=== PATIENT | female | born 1955 | race Caucasian/White ===

== ENCOUNTER 2023-04-02 21:09 | Inpatient (IN) | payer MEDICARE, BC ==
[~2023-04-02] VITALS: Ht 162.6 cm; Wt 50.8 kg
--- NOTE | 2023-04-02 21:15 | NUR ---
PT A/OX4 BREATHING IS EVEN AND UNLABORED 7% ON ROOM AIR. C/O AB PAIN REJI UMBILICAL 08/17 ACUTE ONSET. PT PLACED IN BED LOW FOWLERS AND CONNECTED TO BEDSIDE MONITOR TACHYCARDIA NOTED 122 BP WNL. BED LOCKED IN LOWEST POSTION.
--- NOTE | 2023-04-02 21:15 | NUR ---
20g rac started blood drawn and sent to lab
--- NOTE | 2023-04-02 21:15 | NUR ---
AT BEDSIDE FOR EVAL.
--- NOTE | 2023-04-02 21:45 | NUR ---
URINE COLLECTED AND SENT TO LAB
[2023-04-02] MEDS ORDERED: IV NS 0.9% 500 ML BAG IV ONE (22:00)
[2023-04-02] MEDS ORDERED: MORPHINE SULFATE INJ 2 MG/ML DISP.SYRIN IV ONE (22:00)
[2023-04-02] MEDS ORDERED: ONDANSETRON HCL/PF 4 MG/2 ML VIAL IV ONE (22:00)
[2023-04-02] MEDS ORDERED: ONDANSETRON HCL/PF 4 MG/2 ML VIAL ONE (22:09)
[2023-04-02] MEDS ORDERED: MORPHINE SULFATE INJ 4 MG/ML DISP.SYRIN ONE (22:10)
[2023-04-02 22:16] LABS: EOSINOPHILS % (AUTO) 0.5 % (0.0-6.0); LYMPHOCYTES # (AUTO) 1.4 K/uL (0.8-4.8); MEAN CORPUSCULAR HGB CONC 33 g/dl (31.0-36.0); MEAN CORPUSCULAR VOLUME 99 fL (82-100); PLATELET COUNT (AUTO) 415 K/uL (150-450)
[2023-04-02 22:20] LABS: HEMATOCRIT 40 % (33-45); HEMOGLOBIN 13.1 g/dL (11.5-14.8); LYMPHOCYTES % (AUTO) 31.3 % (20.0-44.0); MONOCYTES % (AUTO) 0.6 % (2.0-12.0); NEUTROPHILS % (AUTO) 66.6 % (43.0-81.0); RED BLOOD CELL COUNT(AUTO) 4.09 MIL/uL (4.0-5.2); WHITE BLOOD COUNT (AUTO) 4.4 K/uL (4.3-11.0)
[2023-04-02 22:24] LABS: CALCIUM, SERUM 9.9 mg/dL (8.5-10.1); CARBON DIOXIDE 22 mmol/L (21-32); CHLORIDE 103 mmol/L (98-107); CREATININE 2.2 mg/dL (0.6-1.3); GLUCOSE 156 mg/dL (74-106); POTASSIUM 3.6 mmol/L (3.5-5.1); SODIUM SERUM 143 mmol/L (136-145); UREA NITROGEN, BLOOD 36 mg/dL (7-18)
[2023-04-02 22:29] LABS: ALANINE AMINOTRANSFERASE 52 U/L (12-78); ALBUMIN 4.4 g/dL (3.4-5.0); ALKALINE PHOSPHATASE 121 U/L (46-116); ASPARTATE AMINOTRANSFERASE 38 U/L (15-37); BILIRUBIN,DIRECT 0.1 mg/dL (0.0-0.2); BILIRUBIN,TOTAL 0.4 mg/dL (0.2-1.0); LIPASE 99 U/L (73-393); TOTAL PROTEIN, SERUM 7.4 g/dL (6.4-8.2)
[2023-04-02] MEDS ORDERED: MINERAL OIL 133 ML (PYXIS) 1 EA ENEMA RC ONE ×2 (22:59→23:00)
--- NOTE | 2023-04-02 23:15 | NUR ---
REPORT RECEIVED FROM ERICA CHATMAN FOR ELLIS
[2023-04-03] VITALS (25 sets, daily range): BP systolic 0–169; BP diastolic 0–90
--- NOTE | 2023-04-03 00:10 | NUR ---
MUSIC THERAPY TEACHER AT BEDSIDE
--- NOTE | 2023-04-03 00:15 | NUR ---
COVID SWAB COLLECTED, SENT TO LAB
[2023-04-03] MEDS ORDERED: KETOROLAC TROMETHAMINE INJ 30 MG/ML VIAL ONE (00:48)
[2023-04-03] MEDS ORDERED: KETOROLAC TROMETHAMINE INJ 30 MG/ML VIAL IV ONE (01:00)
--- NOTE | 2023-04-03 02:04 | NUR ---
REPORT GIVEN TO NURY CHATMAN
--- NOTE | 2023-04-03 02:06 | NUR ---
PER NURY RN, PT GOING TO 304-1
[2023-04-03] MEDS ORDERED: IV NS 0.9% 1,000 ML IV ONE ×2 (02:19→09:00)
[2023-04-03] MEDS ORDERED: ONDANSETRON HCL/PF 4 MG/2 ML VIAL IVP PRN (02:30)
[2023-04-03] MEDS ORDERED: Z GUARD REMEDY 4 OZ OINT TP PRN (02:30)
[2023-04-03] MEDS ORDERED: ACETAMINOPHEN 325 MG TABLET PO PRN (02:30)
[2023-04-03] MEDS ORDERED: ZOLPIDEM TARTRATE 5 MG TABLET PO PRN (02:30)
[2023-04-03] MEDS ORDERED: MAG HYDROX/AL HYDROX/SIMETH 30 ML UDC PO PRN (02:30)
[2023-04-03] MEDS ORDERED: MAGNESIUM HYDROXIDE 30 ML UDC PO PRN (02:30)
[2023-04-03] MEDS ORDERED: MINERAL OIL 133 ML (PYXIS) 1 EA ENEMA RC PRN (02:30)
--- NOTE | 2023-04-03 02:55 | NUR ---
PT TRANSPORTED TO [facility] W/ EMT
--- NOTE | 2023-04-03 03:00 | NUR ---
MS ADMISSION NOTE PT HAS IV ACCESS TO RIGHT AC # 20G, IV INTACT, AND PATENT. SKIN ASSESSMENT COMPLETED. PT'S SKIN IS INTACT. BELONGING CHECKED, AND BELONGING LIST SIGNED, AND PLACED IN CHART. SAFETY MEASURES IN PLACE: BED IN LOW POSITION, SR UP X2, CALL LIGHT WITHIN REACH. WILL CONTINUE TO MONITOR PT.
--- NOTE | 2023-04-03 03:00 | NUR ---
MS TUBE TESTER NOTE RECEIVED REPORT FROM ER NURSE TWAN. PT BEING ADMITTED IN ROOM 304-1 FOR ILEUS, AND FECAL IMPACTION OF COLON. PT IS A/O X4, ABLE TO MAKE NEEDS KNOWN. ABLE TO AMBULATE. ON ROOM AIR, TOLERATING ROOM AIR WELL. NO RESPIRATORY DISTRESS NOTED. PT C/O ABDOMINAL DISCOMFORT. IV ACCESS TO RIGHT AC #2V0G
--- NOTE | 2023-04-03 04:00 | NUR ---
MS RN NOTE NG TUBE PLACED TO RIGHT NOSTRIL. PT TOLERATED PROCEDURE WELL.
[2023-04-03 06:56] LABS: BASOPHILS % (AUTO) 0.7 % (0.0-2.0); HEMATOCRIT 42 % (33-45); HEMOGLOBIN 13.3 g/dL (11.5-14.8); LYMPHOCYTES # (AUTO) 0.4 K/uL (0.8-4.8); LYMPHOCYTES % (AUTO) 31.2 % (20.0-44.0); MEAN CORPUSCULAR HGB CONC 32 g/dl (31.0-36.0); MEAN CORPUSCULAR VOLUME 100 fL (82-100); MONOCYTES # (AUTO) 0.1 K/uL (0.1-1.30); MONOCYTES % (AUTO) 4.5 % (2.0-12.0); NEUTROPHILS # (AUTO) 0.7 K/uL (1.8-8.9); NEUTROPHILS % (AUTO) 61.6 % (43.0-81.0); PLATELET COUNT (AUTO) 399 K/uL (150-450); RED BLOOD CELL COUNT(AUTO) 4.23 MIL/uL (4.0-5.2)
--- NOTE | 2023-04-03 07:00 | NUR ---
MS RN CLOSING NOTE PT LEFT IN BED. PT C/O PAIN TO ABDOMEN. MD CALLED, AND NOTIFIED. NEW ORDER RECEIVED FOR MORPHINE 2 MG IV X1. ORDER ENTERED. NG TUBE OUTPUT: 200 ML. IV ACCESS TO RIGHT AC INFUSING NS AT 75 ML/HR. WILL ENDORSE TO MORNING SHIFT NURSE FOR ELLIS.
[2023-04-03 07:18] LABS: CALCIUM, SERUM 9.3 mg/dL (8.5-10.1); CREATININE 3.1 mg/dL (0.6-1.3); PHOSPHORUS 5.1 mg/dL (2.5-4.9); POTASSIUM 4.7 mmol/L (3.5-5.1)
[2023-04-03 07:30] LABS: WHITE BLOOD COUNT (AUTO) 1.2 K/uL (4.3-11.0)
[2023-04-03] MEDS ORDERED: MORPHINE SULFATE INJ 2 MG/ML DISP.SYRIN IV ONE (07:30)
[2023-04-03 07:36] LABS: MAGNESIUM 4.2 mg/dL (1.8-2.4)
--- NOTE | 2023-04-03 07:50 | NUR ---
MS RN OPENING NOTE RECEIVED PATIENT SLEEPING IN BED, EASILY AWAKEN BY VERBAL STIMULI, PT IS A/O X4 ENDORSED BY NOD, ON ROOM AIR, NOT IN CARDIAC OR RESPIRATORY DISTRESS NOTED. STILL ON NPO, IV ACCESS AT RAC #20 WITH NS AT 75 ML/HR. SAFETY MEASURES IMPLEMENTED. WILL MONITOR.
--- NOTE | 2023-04-03 08:00 | NUR ---
RN NOTES RECEIVED CRITICAL LEVEL OF POTASSIUM 6.8, RELAYED TO OLIVIA GOMEZ COMPUTER OPERATIONS MANAGER. AWAITS MD/COMPUTER OPERATIONS MANAGER ORDER.
--- NOTE | 2023-04-03 08:00 | NUR ---
RN NOTES PT FOLLOWS SIMPLE COMMAND, TACHYPNEIC , DR GRISSOM AT THE BEDSIDE, NEW ORDER RECEIVED . CONTINUE TO MONITOR .
--- NOTE | 2023-04-03 08:32 | NUR ---
RN NOTES PT RECEIVED FROM 3W S/P CODE BLUE , INTUBATED, PT DOES NOT RESPONDS TO PAINFUL STIMULI , DOES NOT FOLLOW COMMAND, LOW BP NOTED , ON TELE SR , GRANT INSERTED, 5CC URINE OUTPUT NOTED. LEVO DRIP STARTED FOR BP SUPPORT. IVF NS BOLUS INFUSING, CONTINUE TO MONITOR .
[2023-04-03] MEDS: NOREPINEPHRINE 8 MG in IV D5W 242 ML IV PRN ×2 (08:56→12:27)
[2023-04-03] MEDS ORDERED: IV D5/ 0.9% NACL 1,000 ML IV PRN (09:00)
[2023-04-03] MEDS ORDERED: NOREPINEPHRINE 8 MG in IV NS 0.9% 242 ML IV PRN (09:00)
[2023-04-03] MEDS ORDERED: PANTOPRAZOLE 40 MG VIAL IV SCH (09:00)
[2023-04-03] MEDS ORDERED: IMIPENEM/CILASTATIN 500 MG in IV NS 0.9% 100 ML IV SCH (09:00)
--- NOTE | 2023-04-03 09:00 | NUR ---
RN NOTES PATIENT WAS FOUND UNRESPONSIVE, PULSELESS WITH COLD CLAMMY SKIN BY LABORATORY TECH AT AROUND 0815. CHEST COMPRESSION GIVEN RIGHT AWAY, CODE BLUE INITIATED, CODE YESENIA TEAM ARRIVED. PATIENT STABLIZED Addendum: 04/03/23 at 1154 by SANTOS LUGO RN PATIENT STABILIZED AND FOUND TO HAVE ROSC(RETURN OF CIRCULATION).PATIENT TRANSFERRED TO ICU UTILIZING ACLS PROTOCOL ACCOMPANIED BY ICU NURSE, RT AND PHARMACIST. ENDORSED
[2023-04-03] MEDS ORDERED: PROPOFOL 100 ML IV PRN (09:30)
[2023-04-03] MEDS: HYDROCORTISONE SOD SUCCINATE 100 MG/2 ML VIAL IV SCH ×2 (09:39→12:27)
[2023-04-03] MEDS ORDERED: SULF1TAB48 PO (09:40)
[2023-04-03] MEDS ORDERED: AZIT250T13 PO (09:40)
[2023-04-03] MEDS ORDERED: TACR0.5C4 PO (09:40)
[2023-04-03] MEDS ORDERED: EVER0.5T3 PO (09:40)
[2023-04-03] MEDS ORDERED: PRED1TAB PO (09:40)
[2023-04-03] MEDS ORDERED: FERR-56 PO (09:40)
[2023-04-03] MEDS ORDERED: LAMO150T6 PO (09:40)
[2023-04-03 09:47] LABS: ABG BASE EXCESS -26.3 mmol/L; ABG PCO2 22.3 mmHg (35.0-45.0); ABG PH 6.933 (7.350-7.450); AaDO2 288.7 mmHg; COHb 0.8 % (0.5-1.5); MetHb 0.1 % (0.0-1.5); O2Hb 99.1 % (94.0-97.0); SITE, ABG Left Brachial
[2023-04-03] MEDS ORDERED: SODIUM BICARBONATE SYR 50 MEQ/50 ML DISP.SYRIN IV ONE ×3 (10:00→16:50)
[2023-04-03] MEDS ORDERED: Sodium Bicarbonate 150 MEQ in IV D5W 1,000 ML IV SCH (10:00)
[2023-04-03] MEDS ORDERED: MEROPENEM 500 MG in IV NS 0.9% 50 ML IV SCH (10:00)
--- NOTE | 2023-04-03 10:00 | NUR ---
SPOKE TO DR. GRISSOM REGARDING ANTI REJECTION MEDS, PER MD. HOLD MEDS UNTIL PATIENT SEEN BY SURGEON. PATIENT PLACED ON STEROIDS BY .
--- NOTE | 2023-04-03 10:35 | NUR ---
SPOKE TO PROGRAMMER AND UPDATED WITH PATIENT CONDITION PER FAMILY REQUEST.
[2023-04-03] MEDS ORDERED: IV NS 0.9% 500 ML IV ONE ×2 (11:00→14:00)
[2023-04-03] MEDS ORDERED: METRONIDAZOLE 500MG/ NS 100ML 500 MG in PREMIX 1 EA IV SCH (13:00)
[2023-04-03 13:02] LABS: BAND % (MANUAL) 4 % (0.0-5.0); BASOPHILS % (MANUAL) 0 % (0.0-2.0); EOSINOPHILS % (MANUAL) 2 % (0-4); LYMPHOCYTES % (MANUAL) 28 % (16-48); MONOCYTES % (MANUAL) 3 % (0-11.0); NEUTROPHILS % (MANUAL) 63 (42-76)
[2023-04-03 13:26] LABS: ABG BASE EXCESS -22.7 mmol/L; ABG OXYGEN SATURATION 41.5 % (92.0-98.5); ABG PCO2 35.2 mmHg (35.0-45.0); ABG PH 6.968 (7.350-7.450); COHb 1.9 % (0.5-1.5); MetHb 0.3 % (0.0-1.5); O2Hb 40.6 % (94.0-97.0); SITE, ABG Other; VENT MODE, BG AC 28 450 60%+0
[2023-04-03] MEDS ORDERED: PHENYLEPHRINE 100 MG in IV NS 0.9% 240 ML IV PRN (13:30)
--- NOTE | 2023-04-03 13:35 | NUR ---
FF VBG RESULTS GIVEN TO DR. PELEG. CANDELARIO UPDATED WITH PATIENT CONDITION. ORDERS OBTAINED FOR 2 AMPS BICARB PUSH, NS 500 ML BOLUS, CARRIED OUT.
--- NOTE | 2023-04-03 13:40 | NUR ---
SPOKE TO DR. HUMMEL REGARDING CONSULT. PATIENT CONDITION GIVEN TO MD. PER MD-WILL NEED TO SPEAK TO HOSPITALIST.
[2023-04-03] MEDS ORDERED: VASOPRESSIN INJ 40 UNIT in IV NS 0.9% 38 ML IV PRN (14:00)
--- NOTE | 2023-04-03 14:30 | NUR ---
RN NOTES DR HUMMEL SPOKEN TO PT'S SISTER AT THE BEDSIDE REGARDING SURGERY .
--- NOTE | 2023-04-03 14:35 | NUR ---
DR. HUMMEL AT BEDSIDE FOR SURGICAL CONSULT. SPOKE TO PATIENT SISTER AT BEDSIDE AT LENGTH.
--- NOTE | 2023-04-03 15:00 | NUR ---
RN NOTES PT ON 3 PRESSORS MAX RATE , LOW BP NOTED, UNABLE TO GET O2 SAT , FAMILY AT THE BEDSIDE, MD NOTIFIED, CONTINUE TO MONITOR.
--- NOTE | 2023-04-03 15:46 | NUR ---
RN NOTES DR YO AND DR YOUNG AT THE BEDSIDE.
--- NOTE | 2023-04-03 15:46 | NUR ---
RN NOTES HR IN 20'S , NO BP , PT UNRESPONSIVE , CODE BLUE INITIATED . PLEASE SEE CODE BLUE SHEET .
--- NOTE | 2023-04-03 15:56 | NUR ---
RN NOTES ROSC ACHIEVED, DR YO AND DR YOUNG AT THE BEDSIDE ,
[2023-04-03] MEDS ORDERED: NOREPINEPHRINE 32 MG in IV NS 0.9% 250 ML IV PRN (16:00)
[2023-04-03 16:13] LABS: BASOPHILS % (AUTO) 0.7 % (0.0-2.0); EOSINOPHILS % (AUTO) 1.3 % (0.0-6.0); HEMATOCRIT 31 % (33-45); HEMOGLOBIN 7.9 g/dL (11.5-14.8); LYMPHOCYTES # (AUTO) 2.1 K/uL (0.8-4.8); LYMPHOCYTES % (AUTO) 39.4 % (20.0-44.0); MEAN CORPUSCULAR HGB CONC 25 g/dl (31.0-36.0); MEAN CORPUSCULAR VOLUME 129 fL (82-100); MONOCYTES # (AUTO) 0.6 K/uL (0.1-1.30); MONOCYTES % (AUTO) 11.2 % (2.0-12.0); NEUTROPHILS # (AUTO) 2.5 K/uL (1.8-8.9); NEUTROPHILS % (AUTO) 47.4 % (43.0-81.0); PLATELET COUNT (AUTO) 159 K/uL (150-450); RED BLOOD CELL COUNT(AUTO) 2.41 MIL/uL (4.0-5.2); WHITE BLOOD COUNT (AUTO) 5.3 K/uL (4.3-11.0)
--- NOTE | 2023-04-03 16:15 | NUR ---
RN NOTES K=8.5 , CO2=6 DR YO NOTIFIED, NEW ORDER RECEIVED
[2023-04-03 16:19] LABS: CALCIUM, SERUM 9.5 mg/dL (8.5-10.1); CREATININE 2.8 mg/dL (0.6-1.3)
[2023-04-03 16:23] LABS: POTASSIUM 8.5 mmol/L (3.5-5.1)
[2023-04-03] MEDS ORDERED: CALCIUM CHLORIDE 1,000 MG/10 ML DISP.SYRIN IV ONE (16:25)
[2023-04-03] MEDS ORDERED: DEXTROSE 50%-WATER 50 ML DISP.SYRIN IV ONE ×2 (16:25→16:50)
[2023-04-03] MEDS ORDERED: EPINEPHRINE (1:10,000) SYRINGE 1 MG/10 ML DISP.SYRIN IVP ONE ×2 (16:26→16:50)
[2023-04-03] MEDS ORDERED: Sodium Bicarbonate 50 MEQ/50 ML VIAL IV ONE (16:26)
[2023-04-03] MEDS ORDERED: Magnesium 1 GM/2 ML VIAL IV ONE (16:26)
[2023-04-03] MEDS ORDERED: DEXTROSE 50%-WATER 50 ML DISP.SYRIN IVP ONE (16:30)
[2023-04-03] MEDS ORDERED: INSULIN REGULAR, HUMAN 100 UNIT/ML 3 ML VIAL IV ONE (16:30)
--- NOTE | 2023-04-03 16:33 | NUR ---
RN NOTES NO BP , NO PULSE , NO O2 SAT NOTED, ASYSTOLE ON MONITOR, CODE BLUE INITIATED . PLEASE SEE CODE BLUE SHEET
--- NOTE | 2023-04-03 16:45 | NUR ---
RN NOTES PT PRONOUNCED BY DR YOUNG .
--- NOTE | 2023-04-03 17:00 | NUR ---
RN NOTES ON [facility]GACY NOTIFIED , BODY RELEASED CASE # [id number]. PT BELONGINGS TAKE HOME BY PT'S
[2023-04-03 17:05] LABS: BILIRUBIN,TOTAL 0.6 mg/dL (0.2-1.0)
[2023-04-03 17:07] LABS: ALBUMIN 1.2 g/dL (3.4-5.0)
--- NOTE | 2023-04-03 17:08 | NUR ---
SPOKE TO OFFICER YVES-PATIENT NOT A [employer] LOADER CASE. BODY RELEASED.
[2023-04-03 17:24] LABS: BAND % (MANUAL) 17 % (0.0-5.0); LYMPHOCYTES % (MANUAL) 44 % (16-48); NEUTROPHILS % (MANUAL) 23 (42-76)
[2023-04-03 17:25] LABS: METAMYELOCYTES % 4 % (0-0); MONOCYTES % (MANUAL) 11 % (0-11.0); MYELOCYTES % 1 % (0-0)
--- NOTE | 2023-04-03 18:36 | NUR ---
RN NOTES POST MORTEM CARE DONE, [place] [facility] [place]
== END 2023-04-03 16:45 | DRG 871 ==
LOC: ER 21:19 → MED 04-03 02:09 → ICU 04-03 08:34
PROVIDERS: ADMIT Internal Medicine; ATTEND Nurse Practitioner Acute Care
PROC: 5A1935Z Respiratory Ventilation, Less than 24 Consecutive Hours (ICD-10-PCS; principal; 2023-04-03)
PROC: 0BH17EZ Insertion of Endotracheal Airway into Trachea, Via Natural or Artificial Opening (ICD-10-PCS; 2023-04-03)
PROC: 02HV33Z Insertion of Infusion Device into Superior Vena Cava, Percutaneous Approach (ICD-10-PCS; 2023-04-03)
PROC: B548ZZA Ultrasonography of Superior Vena Cava, Guidance (ICD-10-PCS; 2023-04-03)
PROC: 5A12012 Performance of Cardiac Output, Single, Manual (ICD-10-PCS; 2023-04-03)
DX: A41.9 Sepsis, unspecified organism (principal); I21.A1 Myocardial infarction type 2; J96.01 Acute respiratory failure with hypoxia; N17.0 Acute kidney failure with tubular necrosis; R65.21 Severe sepsis with septic shock; Z94.2 Lung transplant status; K56.7 Ileus, unspecified; K55.9 Vascular disorder of intestine, unspecified; J98.11 Atelectasis; D84.9 Immunodeficiency, unspecified; R18.8 Other ascites; E87.20 Acidosis, unspecified; K56.41 Fecal impaction; Z20.822 Contact with and (suspected) exposure to COVID-19; I95.9 Hypotension, unspecified; N18.9 Chronic kidney disease, unspecified; E16.2 Hypoglycemia, unspecified; N28.1 Cyst of kidney, acquired
CPT/HCPCS: 36415; 36600; 71045-TC; 74018; 76770-TC; 80048-TC; 80053-TC; 80076-TC; 82962-TC; 83605-TC; 83690-TC; 83735-TC; 84100-TC; 84484-TC; 85025-TC; 85730-TC; 87040-TC; 87081-TC; 93307-TC; A4216; A4223; C9113; C9803; G0378; J0171; J1720; J1815; J1885; J2185; J2270; J2370; J2405; J3475; J3490; J7030; J7040; J7042; J7050; J7060; J7070